=== PATIENT | female | born 1985 | race Caucasian/White ===

== ENCOUNTER 2020-06-29 09:21 | Outpatient (CLI) | payer MEDICAID, SELFPAY ==
--- NOTE | 2020-06-29 09:33 | US_ITS ---
WS: [id number] ULTRASOUND EARLY TECHNIQUE: Transabdominal sonography of the pelvis was performed. Followed by transvaginal sonography to better evaluate the uterus and ovaries. CLINICAL INFORMATION: SUPERFVISION NORMAL LMP: 03/20/2020 Beta hCG: Unknown. COMPARISON: None. FINDINGS: UTERUS AND GESTATIONAL SAC Intrauterine gestations: Intrauterine gestational sac with pole. Estimated gestational age: 9 weeks 2 days Estimated delivery January 30, 2021 Yolk sac: 0.3 cm. [place] rump length (CRL): 2.5 cm. heart motion: 171 BPM. Subchorionic hemorrhage: None. OVARIES Right ovary: Normal. Left ovary: Normal. FREE FLUID None. US/US OB <= 14 weeks fetus [id number] IMPRESSION: 1. Single live intrauterine . 2. Estimated gestational age 9 weeks 2 days. 3. Estimated gestational age;
== END 2020-06-29 09:22 | disposition home or self-care (01) ==
PROVIDERS: PCP Electrodiagnostic Medicine; Visit Provider Family Medicine
DX: Z34.80 Encounter for supervision of other normal pregnancy, unspecified trimester (principal); Z3A.09 9 weeks gestation of pregnancy
CPT/HCPCS: 76801

== ENCOUNTER 2020-07-20 03:38 | Emergency (ER) | payer MEDICAID, SELFPAY ==
[2020-07-20 03:41] VITALS: BP 113/56; PULSE 80; RESP 17; TEMP 36.4; O2SAT 99; BMI 30.4
--- NOTE | 2020-07-20 04:21 | W.ED.FEMALGU ---
HPI - Female Genitourinary General: Chief complaint: Urogenital-Female Stated complaint: 12 WEEKS PREG/DIFFICULTY URINATING Time Seen by Provider: 07/20/20 03:51 Source: patient Mode of arrival: ambulatory Limitations: no limitations History of Present Illness: HPI Narrative: 35-year-old female who is currently 12 weeks states she has had difficulty urinating since 10 last night. States she feels like her bladder is filling up and she is having pressure and pain in her lower abdomen she rates a 5 out of 10. Patient denies any vomiting. She denies any vaginal discharge or bleeding. She denies any dysuria states she has not been able to urinate. She has had no problems with this Associated symptoms: Reports abdominal pain; Deny headache(s) Review of Systems Const: Denies: fever(s), chills, body aches or change in appetite Eyes: Denies: blurry vision or eye discomfort ENMT: Denies: throat pain or dental pain Card: Denies: chest pain Resp: Denies: dyspnea GI: Reports: abdominal pain : Reports: difficulty voiding Musc: Denies: neck pain or back pain Skin/Breast: Denies: rash Neuro: Denies: headache(s) Psych: Denies: depression Tong/Lymph: Denies: easy bruising All/Imm: Denies: urticaria Physical Exam Const: COMMON NORMALS: no acute distress, patient oriented x3 and healthy appearing HENMT: COMMON NORMALS: normocephalic and atraumatic HEAD & SCALP: normocephalic and atraumatic Eye: COMMON NORMALS: Equal, round and reactive pupils present and EOMs intact bilaterally PUPIL: Yes Equal, round and reactive pupils present Neck/C-Spine: COMMON NORMALS: full ROM and supple Chest: COMMONS NORMALS: normal inspection of the chest and normal palpation of entire chest wall Resp: COMMON NORMALS: normal respiratory effort, No retractions, No use of accessory muscles and clear to auscultation bilaterally AUSCULTATION: clear to auscultation bilaterally Cardio: COMMON NORMALS: regular rate, regular rhythm and No murmurs present (Cardio) RATE: regular rate RHYTHM: regular rhythm GI: COMMON NORMALS: Soft to palpation and no masses PALPATION: Yes Soft to palpation OTHER: Slight tenderness in the suprapubic region gravid uterus noted Extremity: COMMON NORMALS: normal to inspection and full ROM Neuro: COMMON NORMALS: patient oriented x3, moves all extremities and no focal motor deficits Psych: COMMON NORMALS: mental status grossly normal, Normal thought process present and cooperative THOUGHT PROCESS: Normal thought process present Skin: COMMON NORMALS: no rashes or lesions noted and no wounds GENERAL SKIN EXAM: no rashes or lesions noted Course Vital Signs: Vital signs: Vital Signs Temperature 97.6 F 07/20/20 03:41 Pulse Rate 80 07/20/20 03:41 Respiratory Rate 17 07/20/20 03:41 Blood Pressure 113/56 07/20/20 03:41 Pulse Oximetry 99 07/20/20 03:41 MDM - Female MDM Narrative: Medical decision making narrative: Patient presents with urinary retention had a large amount out with Vance placement feels much improved. Will discharge with a leg bag and she is to follow-up with her OB in 1 to 2 days. She did not have a UTI. She is return if worsening. Lab Data: Labs: Lab Results 07/20/20 Range/Units 04:15 Urine Color Yellow (Yellow) Urine Appearance Clear (CLEAR) Urine pH 6.5 (5-7) Ur Specific Gravit y 1.020 (1.005-1.030) Urine Protein Neg (Negative) Urine Glucose (UA) Norm (Normal) Urine Ketones Negative (Negative) Urine Blood Neg (Negative) Urine Nitrate Negative (Negative) Urine Bilirubin Neg (Negative) Urine Urobilinogen Norm (Negative) mg/dL Ur Leukocyte Salma ase Negative (Negative) Discharge Plan Discharge Patient Disposition: Home Clinical Impression: Acute urinary retention Condition: Stable Discharge Orders: Discharge ED (Routine); Ordered 07/20/20 Ordered By: Harleen Junior Referrals: Ian Santiago DO [Primary Care Provider] - Remigio Hart MD [Physician] - 1-3 days Discharge Diet: Advance as tolerated Discharge Activity: Resume usual activity Patient Instructions: Urinary Retention in Men (ED) Coding Level of Care Code ED Wallpaper Hanger for Tevin Fwd Exam Comprehensive
[2020-07-20 04:39] LABS: Add Urine Microscopic? NO
[2020-07-20 04:52] LABS: Bilirubin Urine Neg (Negative); Blood Urine Neg (Negative); Glucose Urine UA Norm (Normal); Ketones Urine Negative (Negative); Leukocyte Esterase Urine Negative (Negative); Nitrate Urine Negative (Negative); Protein Urine Neg (Negative); Urine Appearance Clear (CLEAR); Urine Color Yellow (Yellow); Urobilinogen Urine Norm (Negative); pH Urine 6.5 (5-7)
[2020-07-20 06:07] VITALS: BP 116/65; PULSE 74; RESP 18; O2SAT 99
== END 2020-07-20 05:50 | disposition home or self-care (01) ==
PROVIDERS: Emergency Provider Emergency Medicine; PCP Electrodiagnostic Medicine
DX: R33.9 Retention of urine, unspecified (principal)
CPT/HCPCS: 51702; 51798; 81003; 99283

== ENCOUNTER → 2020-08-01 14:56 | Outpatient (BNVA) | payer MEDICAID, SELFPAY | PROVIDERS: PCP Electrodiagnostic Medicine; Visit Provider Nurse Practitioner Family | DX: R33.9 Retention of urine, unspecified (principal) | CPT/HCPCS: 81003; 87086 ==

== ENCOUNTER 2020-08-29 09:18 | Outpatient (CLI) | payer MEDICAID, SELFPAY ==
--- NOTE | 2020-08-29 09:27 | US_ITS ---
WS: [id number] OBSTETRICAL ULTRASOUND COMPLETE HISTORY: ANATOMY/SUPERVISION NORMAL , multiparous COMPARISON: None available. Single intrauterine gestation in breech presentation. Cervix is Closed and normal length. Cervical length is 3.5 cm. Normal amount of amniotic fluid surrounds the fetus. Placenta: Posterior, no previa or abruption. Placenta grade 1 Heart: 153 BPM. 4 chambers are identified. Normal axis. There is a large defect in the expected locat ion of the intra-atrial septum. Larger than typically seen and an ASD cannot be excluded. Foramen ova le does open normally towards the LEFT atrium. Outflow tracts are not imaged adequately. Anatomy: Intracranial structures and spine are normal. kidneys, stomach and urinary bladd er are unremarkable. Abdominal wall, three-vessel cord and cord insertion site are normal. 4 extremities are present. profile: Unremarkable. Gender: Female. measurements: BPD = 4.0 cm = 18w0d HC = 15.0 cm = 18w0d AC = 12.7 cm = 18w2d FL = 2.7 cm = 18w2d EFW: 230 g. Biometry is internally concordant. AGA by ultrasound: 18w1d AVE by ultrasound: 01/29/2021 US/US OB >= 14 weeks fetus [id number] IMPRESSION: 1. Single intrauterine gestation of 18w1d with an AVE of 01/29/2021. 2. Very limited evaluation of the heart. Large defect in the region of the int ra-atrial septum. Intra-atrial septal defect not excluded. Outflow tracts are n ot visualized. Recommend follow-up in 2-3 weeks for further evaluation of the h eart. The remaining anatomy is negative.
== END 2020-08-29 09:19 | disposition home or self-care (01) ==
LOC: RAD 09:23
PROVIDERS: PCP Electrodiagnostic Medicine; Visit Provider Family Medicine
DX: Z34.82 Encounter for supervision of other normal pregnancy, second trimester (principal); Z3A.18 18 weeks gestation of pregnancy
CPT/HCPCS: 76805

== ENCOUNTER 2020-09-21 08:42 | Outpatient (CLI) | payer MEDICAID, SELFPAY ==
--- NOTE | 2020-09-21 08:52 | US_ITS ---
WS: [id number] ULTRASOUND OB LIMITED TECHNIQUE: Limited ultrasound examination of the fetus. CLINICAL INFORMATION: FOLLOW UP OF THE HEART STRUCTURES COMPARISON: August 29, 2020 FINDINGS: Cervix is long and closed measuring 5.5 cm Single interuterine gestation. presentation is cephalic Placental location is posterior Placenta grade: 0. heart rate 133 BPM. Anatomy: Normal 4 chamber view today. Normal left ventricular outflow tract. Normal right ventricular outflow tract. US/[place] [id number] IMPRESSION: Normal four-chamber heart view today
== END 2020-09-21 08:43 | disposition home or self-care (01) ==
PROVIDERS: PCP Electrodiagnostic Medicine; Visit Provider Electrodiagnostic Medicine
DX: Z34.80 Encounter for supervision of other normal pregnancy, unspecified trimester (principal)
CPT/HCPCS: 76816

== ENCOUNTER 2021-01-30 08:10 | Inpatient (IN) | payer MEDICAID, SELFPAY ==
[2021-01-30] VITALS (62 sets, daily range): BP systolic 80–115; BP diastolic 49–71; PULSE 60–98; RESP 16–118; TEMP 36–36.9; O2SAT 100; BMI 32.9
--- NOTE | 2021-01-30 08:36 | P.HP_ITS ---
Providers/Chief Complaint Primary Care Provider: Ian Santiago DO Chief Complaint: induction of labor History of Present Illness Regina Andres is a 35 year old at 40.0 weeks gestation by 9-week ultrasound with unknown LMP. Her is complicated by nasal polyps, advanced maternal age, urinary retention at 12 weeks with history of clavicular fracture in prior delivery. The patient is feeling well at this time. She denies any significant contractions. She denies any leakage of fluid or vaginal bleeding. The patient denies any fevers, cough, chest pains, shortness of breath, nausea, vomiting, diarrhea, constipation. The patient presents for a scheduled induction due to postdates. Medications/Allergies Home Medications Medication Instructions Recorded Confirmed Last Taken Type prenat.vits,abiel,eew-tcyu-nhcee 1 tab PO DAILY 08/01/20 12/23/20 Unknown History ferrous sulfate 325 mg (65 mg 325 mg PO DAILY 12/23/20 12/23/20 Unknown History iron) tablet Allergies Allergy/AdvReac Type Severity Reaction Status Date / Time codeine Allergy ALGY-Hives Verified 12/23/20 13:43 Penicillins Allergy ALGY-Hives Verified 12/23/20 13:43 PFSH Acute PFSH: Medical History (Updated 01/30/21 @ 19:50 by Remigio Hart MD) H/O urinary retention Urinary retention Surgical History (Updated 01/30/21 @ 19:50 by Remigio Hart MD) H/O breast augmentation H/O nasal septoplasty Family History Father Cancer Colon, Mother is healthy Social History Smoking and tobacco status: never smoked Alcohol intake: never Marital status: Single Current occupational status: employed History of recent travel: No Vitals/I&O/Wt Last Vital Signs Pulse 85 01/30/21 08:27 BP 115/71 01/30/21 08:27 Physical Exam Narrative: EXAM NARRATIVE: General: Alert and oriented x3 Eyes: Pupils equal round and reactive to light and accommodation Mouth: Mucous membranes moist, pharynx non-erythematous Cardiac: Regular rate and rhythm without murmurs Lungs: Clear to auscultation bilaterally without wheezes, crackles or rhonchi Abdomen: Soft, non-tender, fundus consistent with gestational age Extremities: Trace edema in the bilateral lower extremities Data : 01/30/21 09:05 A&P Additional A&P Information Patient is doing well at this time. We will plan to start for induction of labor. The patient may receive a laboring epidural early to ensure that it is in in time. heart tones are in a category 1 tracing. The patient has no concerns at this time. Proceed with routine management of induction of labor. Attestations Medical Necessity Statement*: The patient will be here for greater than two midnights due to routine intrapartum and management of labor and delivery. Coding Level of Care Code Acute Armor Reconnaissance Vehicle Driver for Tevin Andino
[2021-01-30 09:30] LABS: Basophils # 0.1 10^3/uL (0.0-0.1); Basophils % 0.7 %; Eosinophils # 0.4 10^3/uL (0.0-0.8); Eosinophils % 3.7 %; Hematocrit 36.1 % (37.0-47.0); Hemoglobin 11.7 g/dL (11.5-15.3); Lymphocytes # 1.6 10^3/uL (0.8-4.8); Lymphocytes % 15.4 %; Mean Corpuscular HGB Conc 32.4 g/dL (30.0-36.0); Mean Corpuscular Hemoglobin 28.9 pg (28.0-34.0); Mean Corpuscular Volume 89.1 fl (81-99); Mean Platelet Volume 12.3 fL (7.4-10.4); Monocytes # 0.7 10^3/uL (0.2-0.9); Monocytes % 6.6 %; Neutrophils % 72.1 %; Nucleated Red Blood Cells % 0 %; Platelet Count 191 10^3/cmm (130-400); Red Blood Count 4.05 10^6/uL (4.1-5.3); Red Cell Distribution Width 14.1 % (12.1-15.1); White Blood Count 10.1 10^3/uL (4.0-10.0)
[2021-01-30] MEDS: oxytocin 30 UNIT/500 ML BAG IV (09:31)
[2021-01-30] MEDS: dextrose 5%-lactated ringers 1,000 ML 125 ML IV ×2 (10:37→17:04)
--- NOTE | 2021-01-30 10:47 | P.ANESASSM_ITS ---
Pre-Anesthetic Assessment Pre-Anesthetic Assessment: Height/Weight: Height 1.6 m Weight 84.368 kg Temp Pulse Resp BP Pulse Ox 98.4 F 60 18 85/52 100 01/30/21 08:33 01/30/21 10:45 01/30/21 08:33 01/30/21 10:45 01/30/21 10:18 Preop Diagnosis: IUP Was Beta Vandana taken within 24 hours: N/A Was Clonidine taken within 24 hours: N/A Social: Social History: No alcohol and No tobacco Exam: Pre-Anes Outpt Exam: alert, oriented x 3, clear to auscultation bilaterally and regular rate & rhythm Airway: Submandibular: WNL Cervical ROM: WNL MP: 2 Dentition: Full History/ROS: No significant history except as noted CV/HEM: CV/HEM: Anemia Anesthetic Plan: ASA status: 2 Anesthesia: Regional (specify below) (Labor epidural) Risk of > 500 ml blood loss (7ml/kg in children): No Meds/Allergies Current Medications: Current Medications Generic Name Dose Route Start Last Admin Trade Name Darvinq PRN Reason Stop Dose Admin Dextrose/Lactated Ringer's 1,000 mls @ 125 m ls/hr 01/30/21 08:45 01/30/21 10:37 Dextrose 5%-Lact ated Ringers IV 125 mls/hr .Q8H MARCELLUS Administration Ropivacaine 200 mg in 100 mls @ 13 mls/hr 01/30/21 08:45 01/30/21 09:30 Naropin Premix EPIDURAL 13 mls/hr .Q7H42M MARCELLUS Administration Oxytocin 30 unit in 500 ml s @ 1 mls/hr 01/30/21 09:00 01/30/21 10:30 Pitocin IV 5 milliunit/min .Q24H MARCELLUS 5 mls/hr Titration Protocol 1 MILLIUNIT/MIN PFSH Anesthesia PFSH: Medical History Urinary retention Family History Father Cancer Colon, Mother is healthy Social History Smoking and tobacco status: never smoked Alcohol intake: never Marital status: Single Current occupational status: employed History of recent travel: No Female Reproductive History: : 5 Data Anesthesia CBC & Chem 7: 01/30/21 09:05 Other Labs: Laboratory Results - last 48 hr 01/30/21 09:05 WBC 10.1 H RBC 4.05 L Hgb 11.7 Hct 36.1 L MCV 89.1 MCH 28.9 MCHC 32.4 RDW 14.1 Plt Count 191 MPV 12.3 H Neut % (Auto) 72.1 Lymph % (Auto) 15.4 [place] % (Auto) 6.6 Eos % (Auto) 3.7 Baso % (Auto) 0.7 Neut # (Auto) 7.30 Lymph # (Auto) 1.6 [place] # (Auto) 0.7 Eos # (Auto) 0.4 Baso # (Auto) 0.1 Nucleated RBC % (auto) 0 Nucleated RBCs # 0.0 Cardiac Studies: No Data to Display
[2021-01-30] MEDS: ePHEDrine 50 mg/mL Inj 10 MG IVP (10:48)
--- NOTE | 2021-01-30 10:49 | ANES.PROC ---
Anesthesia Procedures Procedure/Date: 01/30/21 Epidural: Time Out Performed: Yes Consents Signed: Procedure Consent Consent: requested by attending/covering physician, from patient and risks and benefits reviewed Lumbar Level: L3-L4 Epidural position: sitting Epidural procedure: sterile prep of area, 1% lidocaine to numb the area, 18 g needle, neg for paresthesia, test dose given, 1.5% xylocaine 1:200k epi, no systemic response, sterile dressing applied and 0.2% Ropiavacaine @ mls/hr (13) Additional Comments: GARTH at 4cm, cath at 9cm, 5mls of 2% lido through needle.
[2021-01-30] MEDS: lactated ringers 1,000 ML 999 ML IV (11:36)
[2021-01-30] MEDS: ondansetron 2 mg/ML SDV 2 mL 4 MG IVP (11:36)
[2021-01-30] MEDS: alum-mag-hydroxide-sime 30 mL UDC PO (17:08)
--- NOTE | 2021-01-30 19:51 | P.PCNOB_ITS ---
Delivery Note: Date of delivery: January 30, 2021 Pre-delivery diagnoses: 1. Intrauterine at 40.0 weeks gestation 2. Advanced maternal age 3. Urinary retention at 12 weeks Post-delivery diagnoses: 1. Intrauterine at 40.0 weeks gestation status post spontaneous vaginal delivery 2. Advanced maternal age 3. Urinary retention at 12 weeks 4. Delivery of healthy female weighing 7 pounds 15 ounces with Apgars of 8 and 9 5. Patient desires bilateral tubal ligation. Procedure: Spontaneous vaginal delivery Op report anesthesia: Epidural Delivering Physician: Remigio Hart MD Estimated blood loss (mL): 100 Findings: 1. Delivery of healthy female weighing 7 pounds 15 ounces with Apgars of 8 and 9 2. Intact placenta with central umbilical cord insertion site. Pre-Delivery Course: Regina Andres is a 35-year-old G5 now P5 status post spontaneous vaginal delivery at 40.0 weeks gestation. She presented to labor and delivery for induction of labor secondary to postdates. She was 5 cm upon admission. She was started on IV Pitocin and given a laboring epidural. She was comfortable with the epidural. She contracted well every 2 to 4 minutes. She made slow change initially and at 1800 on 01/30/2021, SROM took place. Clear fluid was noted. The patient then changed rapidly and was complete by 1850 on 01/30/2021. Delivery: The patient began pushing at 1856 on 01/30/2021. The patient pushed well and the infant's head delivered at 1858 on 01/30/2021. The head was in the OA position. The left shoulder was the anterior shoulder and it delivered with ease. The rest of the delivered without complication. There was no nuchal cord. The infant's mouth and nose were bulb suctioned by myself and the infant was placed on the mother's chest where the nurses were awaiting to care for her. The cord was clamped by myself after approximately 1 minute. The cord was cut by the 's father. Cord blood was obtained. The cord was then drained of blood and traction was placed on the umbilical cord. The placenta then delivered at 1905 on 01/30/2021. The placenta was noted to be intact with a central umbilical cord insertion site. The uterus was then massaged and noted to be firm and midline. The cervix was inspected and no lacerations were noted. The vaginal wall was inspected and a small second-degree midline perineal laceration was noted. This was repaired using 3-0 Vicryl in a running fashion. The patient did not need further anesthesia as the epidural provided adequate anesthesia. A rectal exam was done and no sutures were noted in the rectum. Currently both the mother and infant are doing very well. Coding Level of Care Code Acute Private Branch Exchange Service Adviser for Tevin Andino
[2021-01-30 20:39] LABS: SARS Covid-2 Antigen Negative (Negative)
[2021-01-30] MEDS: ibuprofen 800 mg tablet PO (21:40)
[2021-01-31] VITALS (22 sets, daily range): BP systolic 88–116; BP diastolic 49–70; PULSE 63–82; RESP 12–18; TEMP 36.4–36.7; O2SAT 95–100
[2021-01-31] MEDS: acetaminophen 325 mg Tablet 650 MG PO (01:13)
[2021-01-31 08:16] LABS: Hemoglobin 9.9 g/dL (11.5-15.3); Mean Corpuscular HGB Conc 31.9 g/dL (30.0-36.0); Mean Corpuscular Hemoglobin 28.5 pg (28.0-34.0); Mean Corpuscular Volume 89.3 fl (81-99); Mean Platelet Volume 11.3 fL (7.4-10.4); Platelet Count 183 10^3/cmm (130-400); Red Blood Count 3.47 10^6/uL (4.1-5.3); Red Cell Distribution Width 14.2 % (12.1-15.1); White Blood Count 12.5 10^3/uL (4.0-10.0)
--- NOTE | 2021-01-31 08:38 | PM.PN ---
Vitals/I&O/Wt Last Vital Signs Temp 97.6 F 01/31/21 05:00 Pulse 67 01/31/21 05:10 Resp 17 01/30/21 20:25 BP 99/58 01/31/21 05:10 Pulse Ox 100 01/30/21 10:18 01/30/21 01/31/21 01/31/21 22:59 06:59 14:59 Intake Total 1905.117 / 1935.133 Output Total 1500 / 1500 Balance 405.117 / 435.133 Weight last 48 hrs Weight 84.368 kg Physical Exam Narrative: EXAM NARRATIVE: GA; alert and oriented x 3 HEENT: normal Breasts: engorged Nipples - skin intact Lungs; clear to auscultation Heart: regular rhythm, no murmurs. Abd: Appropriately tender. BS+. Uterine fundus below umbilicus. No Fundal Tenderness. Perineum: normal lochia. Extremities: no edema, no cyanosis, no tenderness. Urinary Catheter Management^: Vance: Cath Placed During This Visit: yes Reason for Continuing Indwelling Catheter: Other Urinary Catheter Date of Insertion: 01/30/21 Urinary Catheter Time of Insertion: 10:45 Data : 01/31/21 08:05 A&P Assessment and plan (1) Sterilization: 35-year-old female status post spontaneous vaginal delivery desire permanent sterilization requesting tubal ligation. The patient was counseled regarding all methods of contraception, risk and complications. She elected to continue to proceed with the tubal ligation as planned. partial salpingectomy is associated with lower failure rates than interval tubal occlusions done via laparoscopy. She was counseled regarding the procedure, alternative, risks and complications. Complications of tubal sterilization include problems like but not limited to anesthesia, hemorrhage, organ damage, and mortality. Although pregnancies after a sterilization procedure are rare, there is substantial risk that any post-sterilization could be ectopic. The overall failure rate is on the order of 0.5% in the first year but a study showed that sterilization failures vary by both age at sterilization and the method used. The study also found that the risks of accumulate over time, and that for women aged 18 to 27 years, failure rates can be as high as 5% with bipolar coagulation and the spring clip. The patient was informed of the risks and benefits of the procedure. Risks included but were not limited to bleeding, infection, and injury to internal organs. The patient was counseled on the risk of sterilization failure. The patient was informed that in the event a occurs the risk of ectopic is increased. The patient was counseled that bilateral tubal ligation is intended to be permanent and nonreversible. She was also counseled that there are nonpermanent forms of control available to her. The patient expressed understanding of the risks involved, all questions were answered, and the patient consented to the procedure. Status: Acute (2) Status post vaginal delivery: Status: Acute Attestations Medical Necessity Statement*: In my professional opinion per admitting diagnosis Coding Level of Care Code Acute Magazine Feeder for [facility] Fwd Diagnoses Sterilization Z30.2 Status post vaginal delivery
--- NOTE | 2021-01-31 08:42 | PC.NURSE ---
Deyanira from surgery here to get pt for her tubal
--- NOTE | 2021-01-31 09:53 | PC.NURSE ---
Linen change Complete linen change done. Patient continues to be in surgery.
[2021-01-31] MEDS: fentaNYL 50 mcg/mL INJ 2mL IVP ×2 (10:05→10:10)
--- NOTE | 2021-01-31 10:09 | P.OP_ITS ---
Operative Report Date of procedure: January 31, 2021 Pre-op Diagnosis: Status post continuous vaginal delivery, desires permanent sterilization Post-op diagnosis: same Procedure Done: bilateral tubal partial salpingectomy Specimens removed/disposition: Left and right fallopian tube segments Surgeon: Ritesh Broussard MD Anesthesia: General Estimated blood loss (mL): 5 IV fluids (mL): 500 Complications: None Condition: stable Disposition: PACU Brief History: Mrs. Webster 35-year-old female G5, P5 status post continuous vaginal delivery desire permanent sterilization. The patient was informed of the risks and benefits of the procedure. Risks included but were not limited to bleeding, infection, and injury to internal organs. The patient was counseled on the risk of sterilization failure. The patient was informed that in the event a occurs the risk of ectopic is increased. The patient was counseled that bilateral tubal ligation is intended to be permanent and nonreversible. She was also counseled that there are nonpermanent forms of control available to her. The patient expressed understanding of the risks involved, all questions were answered, and the patient consented to the procedure. Procedure: After assuring informed consent. The patient was informed of the risks and benefits of the procedure. Risks included but were not limited to bleeding, infection, and injury to internal organs. The patient was counseled on the risk of sterilization failure. The patient was informed that in the event a occurs the risk of ectopic is increased. The patient was counseled that bilateral tubal ligation is intended to be permanent and nonreversible. She was also counseled that there are nonpermanent forms of control available to her. The patient expressed understanding of the risks involved, all questions were answered, and the patient consented to the procedure. The patient was taken to the operating room and general anesthesia administered. Time-out procedure was performed. A small, transverse, infr aumbilical skin incision was made with a scalpel, and the incision was carried down through the underlying fascia until the peritoneum was identified and entered. The left fallopian tube was identified, brought into the incision and grasped with a Zuleyma clamp. The tube was then followed out to the fimbria. An avascular midsection of the fallopian tube was grasped with a Zuleyma clamp and brought into a knuckle. The tube was doubly ligated with an O-plain suture and was clamped seal and transected with the [employer] Grow (FIG) fine fusion device. The specimen was sent to pathology. Excellent hemostasis was noted, and the tube was returned to the abdomen. The same procedure was performed on the opposite fallopian tube. The fascia was then closed with O-Vicryl in a single layer. The skin was closed with 3-O Monocryl in a subcuticular fashion. The patient tolerated the procedure well. Needle and sponge counts were correct times 3.
[2021-01-31] MEDS: metoclopramide 5 mg/mL SDV 2 mL 10 MG IVP (10:26)
--- NOTE | 2021-01-31 11:52 | P.ANESUD_ITS ---
Pre-Anesthetic Update Pre-Anesthetic Assessment: Date of Surgery/Procedure: 01/31/21 Preop Tonya gnosis: Status post continuous vaginal delivery, desires permanent sterilization Proposed Procedure: Operation Date: 01/31/21 12:00 Proposed Procedures p Bilateral Tubal Ligation(Bilateral) - Ritesh Broussard MD Any changes to Pre-Anesthetic Assessment?: No Labs Last 48hrs: Laboratory Results - last 48 hr 01/30/21 01/30/21 01/31/21 09:05 19:45 08:05 WBC 10.1 H 12.5 H RBC 4.05 L 3.47 L Hgb 11.7 9.9 L Hct 36.1 L 31.0 L MCV 89.1 89.3 MCH 28.9 28.5 MCHC 32.4 31.9 RDW 14.1 14.2 Plt Count 191 183 MPV 12.3 H 11.3 H Neut % (Auto) 72.1 Lymph % (Auto) 15.4 [place] % (Auto) 6.6 Eos % (Auto) 3.7 Baso % (Auto) 0.7 Neut # (Auto) 7.30 Lymph # (Auto) 1.6 [place] # (Auto) 0.7 Eos # (Auto) 0.4 Baso # (Auto) 0.1 Nucleated RBC % (a uto) 0 Nucleated RBCs # 0.0 SARS-CoV-2 Ag (Rap id) Negative Vitals: Temperature 97.8 F 01/31/21 10:20 Temperature Source Temporal Artery S can 01/31/21 10:20 Pulse Rate 63 01/31/21 11:37 Pulse Rhythm 01/31/21 08:00 Respiratory Rate 17 01/31/21 11:19 Respiratory Effort Non-Labored 01/31/21 10:10 Respiratory Depth Normal 01/31/21 10:10 Respiratory Patter n 01/31/21 10:10 Blood Pressure 100/59 01/31/21 11:37 Blood Pressure Alexsandra n 77 01/31/21 10:20 Blood Pressure Pos ition Semi Fowlers 01/30/21 16:39 Pulse Oximetry 96 01/31/21 10:20 Oxygen Delivery Me thod 01/31/21 10:20 Oxygen Flow Rate 8 01/31/21 10:10 Exam: Pre-Anes Outpt Exam: alert, oriented x 3, clear to auscultation bilaterally and regular rate & rhythm Additional Exam Findings (including area of procedure): GA Cardiac Studies: No Data to Display
--- NOTE | 2021-01-31 11:52 | ANE.PACU2 ---
Inpatient post-anesthesia follow up: Airway intact: Yes Vital signs: Temperature 97.8 F Pulse Rate 63 Respiratory Rate 17 Blood Pressure 100/59 Pulse Oximetry 96 Oxygen Delivery Me thod Room Air Oxygen Flow Rate 8 Fraction of Inspir ed Oxygen Hydration adequate: Yes Nausea and vomiting: No Pain level: 2 Mental status: Baseline
--- NOTE | 2021-01-31 15:07 | PC.RESP ---
Patient instructed on Incentive Spirometry.
[2021-01-31 15:14] LABS: Coronavirus Test Green County Not Detected
[2021-01-31] MEDS: ibuprofen 800 mg tablet PO (16:30)
--- NOTE | 2021-01-31 17:24 | PM.PN ---
Subjective Subjective: Interval history: The patient is starting to improve today. She had her tubal ligation this morning. Her pain is currently well controlled. She is ambulating, voiding, passing gas and tolerating food by mouth. She has no concerns that her bleeding is too much. Vitals/I&O/Wt Last Vital Signs Temp 97.8 F 01/31/21 10:20 Pulse 66 01/31/21 16:59 Resp 17 01/31/21 11:19 BP 88/49 01/31/21 16:59 Pulse Ox 96 01/31/21 10:20 01/31/21 01/31/21 01/31/21 06:59 14:59 22:59 Intake Total 0 / 0 500 / 500 Output Total 5 / 5 Balance -5 / -5 500 / 495 Weight last 48 hrs Weight 186 lb Physical Exam Narrative: EXAM NARRATIVE: General: Alert and oriented x3 Cardiac: Regular rate and rhythm without murmurs Lungs: Clear to auscultation bilaterally without wheezes, crackles or rhonchi Abdomen: Soft, mild to moderate tenderness over the uterus. Fundus is firm and 2 cm below the umbilicus. Incision site is clean and dry without signs of infection or dehiscence. Extremities: +1 pitting edema in the bilateral lower extremities Urinary Catheter Management^: Vance: Cath Placed During This Visit: yes Reason for Continuing Indwelling Catheter: Other Urinary Catheter Date of Insertion: 01/30/21 Urinary Catheter Time of Insertion: 10:45 Data : 02/01/21 05:25 A&P Additional A&P Information The patient is doing well at this time. She is showing no signs of complications from her delivery or bilateral tubal ligation. We will continue to monitor overnight and as long as she is doing well, plan for discharge home tomorrow. All questions were answered. Continue with current management. Attestations Medical Necessity Statement*: The patient continues need inpatient care for management. Her stay will cross 2 midnights. Coding Level of Care Code Acute Home Performance Consultant for Tevin Andino
[2021-01-31] MEDS: docusate sodium 100 mg Capsule PO (17:55)
[2021-02-01] MEDS: ibuprofen 800 mg tablet PO (00:37)
[2021-02-01 03:54] VITALS: BP 88/51; PULSE 66
[2021-02-01 05:38] LABS: Hematocrit 30.7 % (37.0-47.0); Hemoglobin 9.7 g/dL (11.5-15.3); Mean Corpuscular HGB Conc 31.6 g/dL (30.0-36.0); Mean Corpuscular Volume 91.9 fl (81-99); Mean Platelet Volume 11.5 fL (7.4-10.4); Platelet Count 210 10^3/cmm (130-400); Red Blood Count 3.34 10^6/uL (4.1-5.3); Red Cell Distribution Width 14.4 % (12.1-15.1); White Blood Count 14.1 10^3/uL (4.0-10.0)
--- NOTE | 2021-02-01 08:29 | P.DS_ITS ---
Discharge Providers Date of Admission: 01/30/21 08:10 Date of Discharge: February 01, 2021 Attending Provider at Admission: Remigio Hart MD Attending Provider at Discharge: Remigio Hart MD Primary Care Provider: Ian Santiago DO Diagnoses at Discharge Discharge Diagnosis (1) Sterilization: Status: Acute (2) Status post vaginal delivery: Status: Acute Other Information Additional DC diagnoses/information: 1. Intrauterine at 40.0 weeks gestation status post spontaneous vaginal delivery 2. Advanced maternal age 3. Urinary retention at 12 weeks 4. Delivery of healthy female weighing 7 pounds 15 ounces with Apgars of 8 and 9 5. Status post bilateral tubal ligation. Reason for Visit Reason for Visit: induction of labor Hospital Course Hospital Course Regina Andres is a 35-year-old G5 now P5 status post spontaneous vaginal delivery at 40.0 weeks gestation. She presented to labor and delivery for induction of labor secondary to postdates. She was 5 cm upon admission. She was started on IV Pitocin and given a laboring epidural. She was comfortable with the epidural. She contracted well every 2 to 4 minutes. She made slow change initially and at 1800 on 01/30/2021, SROM took place. Clear fluid was noted. The patient then changed rapidly and was complete by 1850 on 01/30/2021. Delivery: The patient began pushing at 1856 on 01/30/2021. The patient pushed well and the 's head delivered at 1858 on 01/30/2021. The head was in the OA position. The left shoulder was the anterior shoulder and it delivered with ease. The rest of the delivered without complication. There was no nuchal cord. The infant's mouth and nose were bulb suctioned by myself and the infant was placed on the mother's chest where the nurses were awaiting to care for her. The cord was clamped by myself after approximately 1 minute. The cord was cut by the infant's father. Cord blood was obtained. The cord was then drained of blood and traction was placed on the umbilical cord. The placenta then delivered at 1905 on 01/30/2021. The placenta was noted to be intact with a central umbilical cord insertion site. The uterus was then massaged and noted to be firm and midline. The cervix was inspected and no lacerations were noted. The vaginal wall was inspected and a small second-degree midline perineal laceration was noted. This was repaired using 3-0 Vicryl in a running fashion. : The patient had a bilateral tubal ligation done by Dr. Broussard. She has had no complications from this at this time. She is currently ambulating, voiding, passing gas and tolerating food by mouth. Her pain is well controlled with Motrin alone. At this time she is showing no signs of co mplications. We will plan to discharge home today and follow-up in clinic over the next week. Sooner if she is having any concerns. All questions were answered. Routine discharge instructions were discussed. The patient and her are in agreement with the current plan of care. Physical Exam Narrative: EXAM NARRATIVE: General: Alert and oriented x3 Cardiac: Regular rate and rhythm without murmurs Lungs: Clear to auscultation bilaterally without wheezes, crackles or rhonchi Abdomen: Soft, mild to moderate tenderness over the uterus. Fundus is firm and 2 cm below the umbilicus. Incision site is clean and dry without signs of infection or dehiscence. Extremities: +1 pitting edema in the bilateral lower extremities Urinary Catheter Management^: Vance: Cath Placed During This Visit: yes Reason for Continuing Indwelling Catheter: Other Urinary Catheter Date of Insertion: 01/30/21 Urinary Catheter Time of Insertion: 10:45 Discharge Data Data Completed and Pending: Pending at discharge Category Date Time Status Pathology: Surgic al [PTH] Routine Pth 01/31/21 10:04 Received Labs from last 24 hours 02/01/21 01/30/21 05:25 09:15 WBC 14.1 H RBC 3.34 L Hgb 9.7 L Hct 30.7 L MCV 91.9 MCH 29.0 MCHC 31.6 RDW 14.4 Plt Count 210 MPV 11.5 H Nasal/Oral COVID-1 9 PCR Not detected Vitals: Last Vital Signs Temp 97.8 F 01/31/21 10:20 Pulse 66 02/01/21 03:54 Resp 17 01/31/21 11:19 BP 88/51 02/01/21 03:54 Pulse Ox 96 01/31/21 10:20 Discharge Plan Discharge Patient Disposition: Home Condition: Good Prescriptions: New ibuprofen 800 mg Tablet 800 mg PO Q8H Qty: 60 RF: 0 Continued prenat.vits,abiel,[id number]-[id number] Tablet 1 tab PO DAILY RF: 0 Changed ferrous sulfate 325 mg (65 mg iron) tablet 325 mg PO BIDWM Qty: 0 RF: 0 Discharge Orders: Discharge Order (Routine); Ordered 02/01/21 Ordered By: Remigio Hart Referrals: Remigio Hart MD [Physician] - 02/15/21 11:20 am (2 weeks and 6 weeks (Okay to cancel 2 week appt if seeing Dr Broussard for follow up appt. 2 week appointment is scheduled on 02/15/21 at 11:20 am. 6 week appointment is scheduled for 03/15/21 at 11:20 am.) Discharge Diet: Regular Discharge Activity: Limit activity as instructed Patient Instructions: Depression (GEN), Pre-eclampsia and Eclampsia (DC), Bleeding (DC), OB Discharge Report, OB Food/Drug Interaction Guide, Opioid Safety, OB Home Care, OB Proud Parent Packet, OB Vaginal Deliveries - [facility] Activity Restrictions/Additional Instructions: Do not lift anything heavier than 15 pounds for the first 2 weeks, then gradually increase. If you have any concern for infection in your incision site, please contact Dr. Hart or Dr. Broussard for further evaluation. Nothing per vagina for 6 weeks. Discharge Attestations Time Spent in Discharge Care*: greater than 30 min Quality Metrics Clinical Quality Measures During this hospital stay, did patient experience: None Coding Level of Care Code Acute Chg FW DC note Diagnoses Sterilization Z30.2 Status post vaginal delivery
[2021-02-01 08:36] VITALS: BP 93/58; PULSE 65
== END 2021-02-01 10:08 | disposition home or self-care (01) | DRG 798 ==
LOC: OPOB 08:15 → OBGYN 08:16 → OPOB 09:24 → OBGYN 09:25
PROVIDERS: Obstetrics & Gynecology; Admitting Provider Family Medicine; PCP Electrodiagnostic Medicine; Visit Provider Family Medicine
PROC: (CPT 58605; principal; 2021-01-31 12:00)
DX: O48.0 Post-term pregnancy (principal); Z37.0 Single live birth; Z3A.40 40 weeks gestation of pregnancy; O70.1 Second degree perineal laceration during delivery; Z30.2 Encounter for sterilization; Z88.0 Allergy status to penicillin; Z80.1 Family history of malignant neoplasm of trachea, bronchus and lung; Z20.822 Contact with and (suspected) exposure to COVID-19
CPT/HCPCS: 36415; 51702; 59025; 59409; 85025; 85027; 87426; 87635; 88302; 99211; J0330; J1100; J2405; J2704; J2765; J2795; J3010; J3490